=== PATIENT | female | born 1955 | race Caucasian/White ===

== ENCOUNTER → 2017-01-22 | Outpatient (CLI) | payer OTHER ==
[~2017-01-22] MED LIST: AMITRIPTYLINE100 M1 PO; AMLODIPINE BESYL5 MG PO; ASPIRIN CHEWABL81 MG PO; CETIRIZINE10 MG PO; LEVOTHYROXINE0.1 MG PO; LOPID600 M1 PO; OMEPRAZOLE40 MG PO; OXYBUTYNIN5 MG PO
== END | disposition home or self-care (01) ==
LOC: RAD 16:41
DX: M18.12 Unilateral primary osteoarthritis of first carpometacarpal joint, left hand (principal); M85.9 Disorder of bone density and structure, unspecified

== ENCOUNTER → 2017-03-20 | Outpatient (CLI) | payer OTHER ==
--- NOTE | ~2017-03-20 | SLPPOC ---
[place], [place] LEG MAN PLAN OF CARE NAME: GOLDY PAINTER UNIT #: [id number] ROOM: DOCTOR: BON SO Speech Language Pathology Plan of Care Page 1 1 (Initial Evaluation) of Patient Name: GOLDY PAINTER Date: 03/20/2017 04:54 PM : 1955 SOC Date: 03/20/2017 [facility] Provider #: [id number] Treating Clinician: MONIE Livingston-LEG MAN Referring Physician: BON SO Visits From SOC: 1 Medicaid #: [id number] Onset Date Code Description Primary Diagnosis: 03/20/2017 R13.10 Dysphagia, unspecified Subjective Comments: Initial evaluation created to initiate the electronic medical record. Please see [employer] for details. Initial Level Goals Functional Limitation Reporting Swallowing G8996 - Swallowing functional limitation, current status at therapy episode outset and at reporting intervals Current Status: CI - At least 1 percent but less than 20 percent impaired, limited or restricted G8997 - Swallowing functional limitation, projected goal status, at therapy episode outset, at reporting intervals, and at discharge or to end reporting Goal Status: CI - At least 1 percent but less than 20 percent impaired, limited or restricted G8998 - Swallowing functional limitation, discharge status, at discharge from therapy or to end reporting Discharge Status: CI - At least 1 percent but less than 20 percent impaired, limited or restricted 03/20/2017 4:55:34 PM BON SO Date/Time MONIE Livingston-LEG MAN Date I certify the need for these services furnished under this plan of treatment while under my care. State License #: [id number] CM:SLPPOC 00 00 IS THERAPY [facility]
--- NOTE | ~2017-03-20 | PROC NOTE ---
[place], [place] PROCEDURE NOTE NAME: GOLDY PAINTER UNIT #: [id number] ROOM: DOCTOR: MARILYNN WORKMAN BIRTHDATE: [birth year] DOS: 03/20/2017 MODIFIED BARIUM SWALLOW TEST REQUESTING DOCTOR: Dr. Lynn Jeffrey. RADIOLOGIST: Dr. Andersen. BACKGROUND INFORMATION: The patient is a 61-year-old female who is seen for modified barium swallow. This test was ordered to view the pharyngeal phase of the swallow and rule out aspiration. The patient reported her case history and reported complaints of food sticking, a feeling that foods or liquids are going down the wrong way and frequent chest pain when eating. The patient currently receives a regular diet and thin liquids. 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 The patient reported that she has been a smoker for the past 40 years and smokes about a pack a day. The patient was noted to be hoarse and with occasional cough at rest. She was alert and able to follow all commands during the assessment. Oral peripheral examination revealed presence of upper denture only. The patient was edentulous on the bottom. Lingual skills were within normal limits in terms of strength, range of motion and coordination. Buccal skills were within normal limits. The patient exhibited mildly reduced left labial range of motion and strength. Volitional swallow and cough were adequate. METHODS AND MATERIALS USED FOR THE EXAM: The patient was positioned in the lateral plane and the exam was viewed under fluoroscopy. The patient was presented with a variety of consistencies to assess swallowing skills including applesauce mixed with barium presented in half teaspoon amounts, barium-coated cookie and turkey sandwich presented in bite size pieces and thin liquid barium taken single sip size amount by cup and straw. ORAL PHASE: The patient achieved adequate labial seal around cup, spoon and straw with no anterior loss. Bolus formation and transit were adequate with all consistencies. Mastication was slow due to dentition. Tongue to palate contact was within normal limits. Tongue to posterior pharyngeal wall contact was mildly reduced for barium-coated cookie. Velar functioning was within normal limits with no nasal regurgitation. PHARYNGEAL PHASE: The pharyngeal swallow occurred within a timely manner. No penetration or aspiration occurred with any consistency. A mild amount of pooling occurred in the vallecula with barium-coated cookie which completely cleared with liquid wash. ESOPHAGEAL PHASE: This phase of the swallow was not formally assessed during this examination. IMPRESSIONS AND RECOMMENDATIONS: Based upon assessment results, this 61-year-old female displayed a functional swallow for all consistencies given including pureed, solids and thin liquid taken by cup and straw. Mild amount of [place], [place] PROCEDURE NOTE NAME: GOLDY PAINTER UNIT #: [id number] ROOM: DOCTOR: MARILYNN WORKMAN BIRTHDATE: [birth year] pooling occurred in the vallecula with barium-coated cookie which cleared with liquid wash. No penetration or aspiration occurred with any consistency. Recommend the patient remain on present diet with use of safety strategies such as small bites and sips, chewing thoroughly and alternating liquids and solids and moisten foods as possible so they are easier to chew and swallow. No followup therapy is warranted at this time. Education was provided regarding results and recommendations and the patient verbalized understanding. Thank you very much for this referral. Should you have any questions regarding this patient, please contact the speech pathologist at [phone]. MARILYNN WORKMAN CM:PROCNOTE:PROCEDURE NOTE [id number] 14 MARILYNN WORKMAN
--- NOTE | ~2017-03-20 | SLPIE ---
[place], [place] PAPER SALES MANAGER INITIAL EVALUATION NAME: GOLDY PAINTER UNIT #: [id number] ROOM: DOCTOR: BON SO Speech Language Pathology Initial Evaluation Page 1 1 of Patient Name: GOLDY PAINTER Date: 03/20/2017 04:54 PM : 1955 SOC Date: 03/20/2017 [facility] Provider #: [id number] Treating Clinician: MONIE Livingston-SHAREE Referring Physician: BON SO Patient Information Address: [address] [place] [address] Physician: BON SO Physician #: [facility], [facility], Zip: [place], [place] [address] Occupation: Unknown # of Approved Visits: 0 Gender: Female Medicaid #: [id number] Roaster Helper: ROMA BERNAL [facility] Information / History Onset Date Code Description Primary Diagnosis: 03/20/2017 R13.10 Dysphagia, unspecified Subjective Comments: Initial evaluation created to initiate the electronic medical record. [facility] details. Clinical Findings Functional Goals Functional Limitation Reporting Swallowing G8996 - Swallowing functional limitation, current status at therapy episode outset and at reporting intervals Current Status: CI - At least 1 percent but less than 20 percent impaired, limited or restricted G8997 - Swallowing functional limitation, projected goal status, at therapy episode outset, at reporting intervals, and at discharge or to end reporting Goal Status: CI - At least 1 percent but less than 20 percent impaired, limited or restricted G8998 - Swallowing functional limitation, discharge status, at discharge from therapy or to end reporting Discharge Status: CI - At least 1 percent but less than 20 percent impaired, limited or restricted 03/20/2017 4:55:34 PM MONIE Livingston-PAPER SALES MANAGER Date/Time [place], [place] PAPER SALES MANAGER INITIAL EVALUATION NAME: GOLDY PAINTER UNIT #: [id number] ROOM: DOCTOR: BON SO [facility] License #: [id number] CM:MOODY 00 00 IS THERAPY [facility]
--- NOTE | ~2017-03-20 | SLPPN ---
[place], [place] GRAVEL SCREENER PROGRESS NOTE NAME: GOLDY PAINTER UNIT #: [id number] ROOM: DOCTOR: BON SO Speech Language Pathology Treatment Note Page 1 1 of Patient Name: GOLDY PAINTER Date: 03/20/2017 04:55 PM : 1955 SOC Date: 03/20/2017 [facility] Provider #: [id number] Treating Clinician: MONIE Livingston-GRAVEL SCREENER Referring Physician: BON SO Onset Date Description Code Primary Diagnosis: 03/20/2017 R13.10 Dysphagia, unspecified Time In: 09:00 AM Time Out: 10:00 AM GRAVEL SCREENER Interventions and CPT Codes Consisted of: CPT Code Modifiers Minutes Units MOTION FLUOROSCOPY/SWALLOW 74297 60 1 Total Minutes: 60 Total Timed Minutes: 0 Total Untimed Minutes: 60 Total Units: 1 Total Timed Units: 0 Total Untimed Units: 1 03/20/2017 4:56:40 PM MONIE Livingston-SHAREE Date/Time State License #: [id number] CM:LIANG 00 00 IS THERAPY [facility]
== END | disposition home or self-care (01) ==
LOC: RAD 08:59 → RAD/SH 08:59 → RAD 09:00
DX: R13.10 Dysphagia, unspecified (principal)

== ENCOUNTER → 2017-03-28 | Outpatient (CLI) | payer OTHER | END | disposition home or self-care (01) | LOC: US 14:00 | DX: I65.23 Occlusion and stenosis of bilateral carotid arteries (principal) ==

== ENCOUNTER → 2017-03-29 | Outpatient (CLI) | payer OTHER | END | disposition home or self-care (01) | LOC: CT 03:23 | DX: I63.9 Cerebral infarction, unspecified (principal); I67.82 Cerebral ischemia ==

== ENCOUNTER → 2017-05-01 | Outpatient (CLI) | payer OTHER | END | disposition home or self-care (01) | LOC: CARD 09:16 | DX: I35.1 Nonrheumatic aortic (valve) insufficiency (principal) ==

== ENCOUNTER → 2017-11-29 | Outpatient (CLI) | payer OTHER | END | disposition home or self-care (01) | LOC: RAD 10:14 | DX: M25.511 Pain in right shoulder (principal); Z91.81 History of falling ==